=== PATIENT | male | born 1935 | race Caucasian/White ===

== ENCOUNTER 2017-03-11 06:47 | Day surgery (SDC) | payer BC ==
--- NOTE | ~2017-03-11 | EGD ---
EGD REPORT [facility] [address] [id number] NAME: LYSSA HERNANDEZ : 37 STATUS : REG [facility]#: [id number] AGE: 81 ADM/REG DATE : 03/11/17 MR#: [id number] REPORT SERV DATE: 03/11/17 DICTATED BY: LAZARO KELSEY DATE: 03/11/17 REPORT STATUS : Draft TRANSCRIBED BY: [facility] DATE: 03/11/17 Endoscopy Center Patient Name: Lyssa Hernandez Date of : 1935 Attending MD: LAZARO KELSEY MD Procedure Date No Time: 03/11/2017 Procedure: Upper GI endoscopy Indications: Follow-up of Guzman's esophagus Referring MD: JULIENNE MORENO Medicines: Propofol per Anesthesia Complications: No immediate complications. Procedure: Pre-Anesthesia Assessment: - ASA Grade Assessment: II - A patient with mild systemic disease. After obtaining informed consent, the endoscope was passed under direct vision. Throughout the procedure, the patient's blood pressure, pulse, and oxygen saturations were monitored continuously. The GIF [id number] was introduced through the mouth, and advanced to the second part of duodenum. The upper GI endoscopy was accomplished without difficulty. The patient tolerated the procedure well. Findings: There were esophageal mucosal changes suspicious for long-segment Guzman's esophagus present in the lower third of the esophagus. The maximum longitudinal extent of these mucosal changes was 5 cm in length. Mucosa was biopsied with a cold forceps for histology in 4 quadrants in the lower third of the esophagus. One specimen bottle was sent to pathology. A medium-sized hiatus hernia was present. Diffuse mild inflammation characterized by erosions and erythema was found in the stomach. 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 Biopsied. - Hiatus hernia. - Chronic gastritis. Recommendation: - Discharge patient to home (ambulatory). - Return to my office in 3 weeks. Procedure Code(s): --- Professional --- 21354, Esophagogastroduodenoscopy, flexible, transoral; with biopsy, single or multiple EGD REPORT [facility] [address] [place]. [address] NAME: LYSSA HERNANDEZ : 37 STATUS : REG [facility]#: [id number] AGE: 81 ADM/REG DATE : 03/11/17 MR#: [id number] REPORT SERV DATE: 03/11/17 DICTATED BY: LAZARO KELSEY. DATE: 03/11/17 REPORT STATUS : Draft TRANSCRIBED BY: [employer] DATE: 03/11/17 Diagnosis Code(s): --- Professional --- K22.70, Guzman's esophagus without dysplasia K44.9, Diaphragmatic hernia without obstruction or gangrene K29.50, Unspecified chronic gastritis without bleeding CPT copyright 2013 [employer]. All rights reserved. The codes documented in this report are preliminary and upon yard jacker review may be revised to meet current compliance requirements. Lazaro Kelsey MD LAZARO KELSEY MD 03/11/2017 8:18 AM This report has been signed electronically. Number of Addenda: 0 Note Initiated On: 03/11/2017 7:59 AM Scope Withdrawal Time 0 hours 0 minutes 0 seconds [address] [place] [address]
[~2017-03-11 06:47] MED LIST: COZAAR100 MG PO; ENTOCORT3 PO; MEVACOR40 MG PO; MOBIC7.5 PO; MULTIVIT/MIN PO; PRILOSEC40 MG PO; VITAMIN D31000 UNIT PO; ZIAC10 PO
== END 2017-03-11 23:59 | disposition home or self-care (01) ==
LOC: DMU 06:47
PROVIDERS: Internal Medicine Gastroenterology
PROC: 0DB38ZX Excision of Lower Esophagus, Via Natural or Artificial Opening Endoscopic, Diagnostic (ICD-10-PCS; principal; 2017-03-11 09:00)
DX: K20.9 Esophagitis, unspecified (principal); K44.9 Diaphragmatic hernia without obstruction or gangrene; I10 Essential (primary) hypertension; Z88.0 Allergy status to penicillin
CPT/HCPCS: 88305